=== PATIENT | male | born 1985 | race Hispanic/Latino ===

== ENCOUNTER 2018-05-22 02:05 | Emergency (ER) | payer OTHER ==
[~2018-05-22] VITALS: Ht 180.3 cm; Wt 125.2 kg
--- NOTE | 2018-05-22 03:10 | Diagnostic Imaging Report ---
Exam: PA and lateral view of the chest Indication: Chest pain Comparison: None Findings: The lungs are clear. No pleural effusions or pneumothorax. Normal appearance of the cardiomediastinal silhouette and bones. Impression: No acute cardiothoracic abnormality. Signed by: Dr. Lisa Hart M.D. on 05/22/2018 3:06 AM
[2018-05-22] MEDS ORDERED: POTASSIUM CHLORIDE 20 MEQ TAB CR PO STA (03:23)
== END 2018-05-22 03:54 | disposition home or self-care (01) ==
LOC: FSED 02:05
DX: R07.89 Other chest pain (principal); E87.6 Hypokalemia; K52.9 Noninfective gastroenteritis and colitis, unspecified; I10 Essential (primary) hypertension
CPT/HCPCS: 71046; 80053; 82553; 84484; 85025; 93005; 99283